=== PATIENT | male | born 1955 | race Caucasian/White ===

== ENCOUNTER 2020-12-04 15:24 | Emergency (ER) | payer MEDICARE ==
[2020-12-04 15:40] VITALS: O2SAT 98
--- NOTE | 2020-12-04 17:26 | ERPHSYRPT ---
- History of Present Illness Source: patient Exam Limitations: other (Poor historian) Patient Subjective Stated Complaint: Pt states "I am not sure what happened, but I went to put my shoes on and noticed my right foot was swollen. The only think I can think of is that I fell down a hill fishing the other day." Triage Nursing Assessment: Pt presented alert and oriented X 3, skin pwd Pt ambulates with a fast shuffling gait. PT right ankle swollen, non tender. Physician History: 65 yo wm w R ankle edema today. Pt denies trauma and pain. Chest pain/dyspnea/calf pain are all denied. H/o DVT/PE/gout all denied. Method of Injury: unknown Occurred: other (Today) Quality: other (No pain) Severity of Pain-Max: none Severity of Pain-Current: none Lower Extremities Pain: ankle: right Modifying Factors: Improves With: nothing Associated Symptoms: none Allergies/Adverse Reactions: codeine Adverse Reaction (Severe, Verified 12/04/20 15:41) sick Home Medications: AMITRIPTYLINE HCL 50 mg Tab [AMITRIPTYLINE HCL 50 mg Tablet] 100 mg PO HS 12/04/20 [History] Diazepam 5 mg [Valium 5 MG] 5 mg PO HS 12/04/20 [History] Escitalopram Oxalate 10 mg [Lexapro 10 MG] 10 mg PO DAILY 12/04/20 [History] Hx Tetanus, Diphtheria Vaccination/Date Given: No Hx Influenza Vaccination/Date Given: Yes Hx Pneumococcal Vaccination/Date Given: Yes Immunizations Up to Date: Yes Travel Risk - International Travel Have you traveled outside of the country in past 3 weeks: No - Coronavirus Screening Are you exhibiting any of the following symptoms?: No Close contact with a COVID-19 positive Pt in past 14-21 Days: No - Vaccine Status Have you recieved a Covid-19 vaccination: Yes [employer]: Moderna - Vaccination Dates Date of 2cond Vaccination (if applicable): 06/2020 - Review of Systems Constitutional: No Symptoms Eyes: No Symptoms Ears, Nose, & Throat: No Symptoms Respiratory: No Symptoms Cardiac: No Symptoms Abdominal/Gastrointestinal: No Symptoms Genitourinary Symptoms: No Symptoms Skin: No Symptoms Neurological: No Symptoms Psychological: No Symptoms Endocrine: No Symptoms Hematologic/Lymphatic: No Symptoms Immunological/Allergic: No Symptoms - Past Medical History Pertinent Past Medical History: Yes Neurological History: No Pertinent History ENT History: No Pertinent History Cardiac History: No Pertinent History Respiratory History: No Pertinent History Musculoskeletal History: No Pertinent History GI Medical History: No Pertinent History History: No Pertinent History Psycho-Social History: No Pertinent History Male Reproductive Disorders: No Pertinent History - Past Surgical History Past Surgical History: Yes Other Surgical History: bilat feet. plate in head. left arm. left hand - Social History Smoking Status: Never smoker Exposure to second hand smoke: No Drug Use: none Significant Family History: no pertinent family hx - Nursing Vital Signs Nursing Vital Signs: Initial Vital Signs Temperature 98.2 F 12/04/20 15:30 Pulse Rate 98 H 12/04/20 15:30 Respiratory Rate 22 12/04/20 15:30 Blood Pressure 152/91 12/04/20 15:30 O2 Sat by Pulse Oximetry 98 12/04/20 15:30 Pain Scale Pain Intensity 5 Hypertensive - Physical Exam General Appearance: no apparent distress Eyes, Ears, Nose, Throat Exam: normal ENT inspection, TMs normal, pharynx normal, moist mucous membranes Neck Exam: normal inspection, non-tender, supple, full range of motion, No Brudzinski, No Kernig's, No meningismus Cardiovascular/Respiratory Exam: normal breath sounds, regular rate/rhythm, heart sounds normal Gastrointestinal/Abdominal Exam: non-tender, soft Back Exam: normal inspection, normal range of motion, No CVA tenderness, No vertebral tenderness Hips Exam: bilateral: non-tender, normal inspection, normal range of motion, no evidence of injury Legs Exam: bilateral leg: non-tender, normal inspection, normal range of motion, no evidence of injury Knees Exam: bilateral knee: non-tender, normal inspection, normal range of motion, no evidence of injury Ankle Exam: right ankle: swelling (R ankle edema/No TTP/good pedal pulse, distal sensation, and capillary return), bilateral ankle: non-tender, normal inspection Foot Exam: bilateral foot: non-tender, normal inspection, normal range of motion, no evidence of injury Neuro/Tendon Exam: normal sensation, normal motor functions, normal tendon functions, responds to pain, no evidence tendon injury, No motor deficit, No sensory deficit Mental Status Exam: alert, oriented x 3, cooperative Skin Exam: normal color, warm, dry, No rash SpO2 Interpretation: normal SpO2: 98 O2 Delivery: Room Air - Course Nursing assessment & vital signs reviewed: Yes - Radiology Exams Ankle X-ray Interpretation: Interpreted by me (R ankle neg per ER read) Ordered Tests: Active Orders 24 hr Category Date Time Status John Bandage Application -[facility], [facility] STAT Care 12/04/20 18:30 Completed ANKLE (3 VIEWS) Stat Exams 12/04/20 17:34 Taken Medication Summary Discontinued Medications Generic Name Dose Route Start Last Admin Trade Name June PRN Reason Stop Dose Admin Ketorolac Tromethamine 30 mg 12/04/20 18:34 12/04/20 18:42 Toradol 30 Mg Injection IM 12/04/20 18:35 30 mg STAT ONE Administration Ketorolac Tromethamine Confirm 12/04/20 18:40 Toradol 30 Mg Injection Administered 12/04/20 18:41 Dose 30 mg .ROUTE .STK-MED ONE - Progress Progress Note: 12/04/20 18:30 John wrap R ankle per nursing/NVI Pt painfree during stay 12/04/20 18:33 Pt with calf pain/edema B. No evidence of DVT 12/04/20 18:33 Edema most likely due to occult sprain or arthritis-gout 12/04/20 18:34 Pt decided that he would like a Toradol injection before discharge Counseled pt/family regarding: need for follow-up, rad results - Departure Departure Disposition: Home Clinical Impression: Right ankle sprain Condition: Stable Critical Care Time: No Referrals: CARLOTA SIMENTAL [Primary Care Provider] - Instructions: Ankle Sprain (DC) Additional Instructions: John wrap to ankle for 2-3 days Elevate ankle Motrin/tylenol for pain Follow up with your family MD for continued pain/swelling
[2020-12-04 18:12] VITALS: BP 131/81; PULSE 88
[2020-12-04] MEDS ORDERED: TORAdol 30 mg Injection IM ONE (18:34)
[2020-12-04] MEDS ORDERED: TORAdol 30 mg Injection ONE (18:40)
--- NOTE | 2020-12-05 08:43 | XRAY ---
Indication: Edema. Comparison: None 3 view right ankle demonstrates mild diffuse soft tissue swelling/edema, osteopenia, tiny heel spurs, and moderate scattered vascular calcifications. No other bony, articular, or soft tissue abnormalities.
== END 2020-12-04 17:00 | disposition home or self-care (01) ==
LOC: ED 15:24
DX: S93.401A Sprain of unspecified ligament of right ankle, initial encounter (principal); W17.89XA Other fall from one level to another, initial encounter; Y93.89 Activity, other specified; Y92.89 Other specified places as the place of occurrence of the external cause
CPT/HCPCS: 73610; 96372; 99284; J1885

== ENCOUNTER 2024-05-11 19:56 | Emergency (ER) | payer MEDICARE | END 2024-05-11 23:20 | disposition left against medical advice (07) | LOC: ED 19:56 | DX: Z53.21 Procedure and treatment not carried out due to patient leaving prior to being seen by health care provider (principal) ==